=== PATIENT | male | born 1970 | race Caucasian/White ===

== ENCOUNTER 2016-11-15 18:10 | Emergency (ER) | payer OTHER ==
[~2016-11-15] VITALS: Ht 172.7 cm; Wt 55.0 kg
[2016-11-15 18:16] VITALS: BP 142/90; PULSE 96; RESP 14; TEMP 97.8; O2SAT 99
[2016-11-15] MEDS ORDERED: AMOX500T PO (20:51)
--- NOTE | 2016-11-15 20:51 | PD ---
HPI Chief Complaint: ENT Complaint Time Seen by Provider: 20:47 Travel History International Travel<30 days: No Contact w/Intl Traveler<30days: No Traveled to known affect area: No History of Present Illness HPI 46-year-old white male presents emergency Department with complaints of bilateral ear pain. He states that he has had congestion and a popping. He has had some cold symptoms in the past week. Raynaud's, cough congestion. He has had no fever or chills. Symptoms are moderate. No palliative or exacerbating activity. PFSH Past Medical History Medical History: Denies Significant Hx Diminished Hearing: No Tetanus Vaccination: Unknown Influenza Vaccination: No Past Surgical History Surgical History: No Previous Surgery Social History Alcohol Use: Yes (OCC) Tobacco Use: Yes (1/2PPD) Substance Use: No Allergies-Medications (Allergen,Severity, Reaction): Coded Allergies: No Known Allergies (Unverified , 11/15/16) Reported Meds & Prescriptions Reported Meds & Active Scripts Active No Active Prescriptions or Reported Medications Review of Systems Except as stated in HPI: all other systems reviewed are Neg Physical Exam Narrative GENERAL: Well-developed, well-nourished in no acute distress. Nontoxic appearing. HEAD: Normocephalic, atraumatic. EYES: Pupils equal round and reactive. Extraocular motions intact. No scleral icterus. No injection or drainage. ENT: Right TM is nonvisualized due to cerumen impaction. The left TM is poorly visualized due to cerumen.. The external auditory canals with large amount of cerumen. Nose: clear . Posterior pharynx is pink and moist. No tonsillar edema or exudate. Uvula midline. Airway patent. NECK: Trachea midline.Supple, nontender, moves head freely. No central bony tenderness or spasm. CARDIOVASCULAR: Regular rate and rhythm without murmurs, gallops, or rubs. RESPIRATORY: Clear to auscultation. Breath sounds equal bilaterally. No wheezes , rales, or rhonchi. GASTROINTESTINAL: Abdomen soft, non-tender, nondistended. No hepato-splenomegaly , or palpable masses. No guarding. EXTREMITIES: No clubbing, cyanosis, or edema. No joint tenderness, effusion, or edema noted. BACK: Nontender without deformity or crepitance. No flank tenderness. Data Data Last Documented VS Vital Signs Date Time Temp Pulse Resp B/P Pulse Ox O2 Delivery O2 Flow Rate FiO2 11/15/16 20:15 16 11/15/16 18:16 97.8 96 142/90 99 Room Air MDM Medical Decision Making Medical Screen Exam Complete: Yes Emergency Medical Condition: Yes Medical Record Reviewed: Yes Differential Diagnosis Differential diagnoses: Otitis media, otitis externa serous otitis media, mastoiditis, cerumen impaction Narrative Course This is serous otitis media, cerumen impaction Diagnosis Primary Impression: Serous otitis media Qualified Code: H65.93 - Bilateral serous otitis media, unspecified chronicity Additional Impression: Impacted cerumen of both ears Patient Instructions: General Instructions Additional Instructions: Rest. Increase fluids. 3-4 drops of mineral oil in each ear at night. Amoxicillin. Sudafed. Irrigate your years out in one week. Follow-up with a medical doctor in one week. Med/Other Pt SpecificInfo: Prescription(s) given Scripts No Active Prescriptions or Reported Meds Disposition: 01 DISCHARGE HOME Condition: Stable Albino Renteria Nov 15, 2016 20:51
== END 2016-11-15 21:13 | disposition home or self-care (01) ==
LOC: NEPB 18:10
DX: H65.93 Unspecified nonsuppurative otitis media, bilateral (principal); H61.23 Impacted cerumen, bilateral; I73.00 Raynaud's syndrome without gangrene; R05 Cough; F17.210 Nicotine dependence, cigarettes, uncomplicated
CPT/HCPCS: 99283